=== PATIENT | female | born 1990 | race Caucasian/White ===

== ENCOUNTER 2016-08-20 04:02 | Emergency (ER) | payer OTHER ==
[~2016-08-20] VITALS: Ht 157.5 cm; Wt 76.2 kg
[~2016-08-20 04:02] MED LIST: CLEOCIN HCL300 MG PO
--- NOTE | 2016-08-20 04:20 | ED THROAT/DENTAL COMPLAINT ---
History of Present Illness General Chief Complaint: Sore Throat, Dental Pain Stated Complaint: "I CANT EAT OR DRINK, MY THROAT IS ON FIRE" Source: patient Exam Limitations: no limitations Vital Signs & Intake/Output Vital Signs & Intake/Output Vital Signs Date Time Temp Pulse Resp B/P Pulse O2 O2 Flow FiO2 Ox Delivery Rate 08/20 412 98 Room Air 08/20 409 98.7 98 18 118/62 99 Room Air Allergies Coded Allergies: strawberry (Severe, ANAPHYLAXIS 08/20/16) cefaclor (From Ceclor) (UNKNOWN 08/20/16) Reconcile Medications Amoxicillin 500 MG TABLET 1 TAB PO TID PHARYNGITIS CLINDAMYCIN HCL (Cleocin HCl) 300 MG CAP 1 CAP PO 4X/DAY DENTAL ABSCESS Triage Note: PT FROM HOME C/O SORE THROAT. PT STATES "I WOKE UP YESTERDAY WITH MY THROAT ON FIRE I CANT EAT OR DRINK ANYTHING, MY EARS HURT SO BAD THEY FEEL LIKE THEY ARE FULL, MY WHOLE HEAD FEELS CONGESTED" Triage Nurses Notes Reviewed? yes : No Patient currently breastfeeds: No HPI: Since yesterday patient complaining of a sore throat that radiates to both of ears. The pain is constant. Pain is scratchy and sharp in nature. Pain is exacerbated with swallowing. Patient states that she is able to swallow it just hurts a lot do so. There is no difficulty breathing. The pain is 8 out of 10. There are no fevers or positive chills. There is no abdominal pain. There is no headache. Past History Travel History Traveled to [place] past 21 day No Medical History Any Pertinent Medical History? 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 No Review of Systems Review of Systems Constitutional: Reports: see HPI, chills. EENTM: Reports: see HPI, ear pain, throat pain. Respiratory: Reports: no symptoms. Cardiovascular: Reports: no symptoms. GI: Reports: no symptoms. Musculoskeletal: Reports: no symptoms. Skin: Reports: no symptoms. Neurological/Psychological: Reports: no symptoms. Hematologic/Endocrine: Reports: no symptoms. Immunologic/Allergic: Reports: no symptoms. Physical Exam Physical Exam General Appearance: well developed/nourished, alert, awake, moderate distress Head: atraumatic, normal appearance Eyes: Bilateral: PERRL, EOMI. Ears: Bilateral: canal normal, Tympanic normal. Nose: normal inspection Mouth/Throat: tonsillar exudate, tonsillar swelling Neck: lymphadenopathy (R), lymphadenopathy (L) Cardiovascular/Respiratory: normal breath sounds, normal peripheral pulses, regular rate/rhythm Neurologic/Psych: no motor/sensory deficits, awake, alert, oriented x 3, normal gait, normal mood/affect Core Measures ACS in differential dx? No Severe Sepsis Present: No Septic Shock Present: No Progress Differential Diagnosis: gillian-tonsillar abscess, strep pharyngitis Plan of Care: Orders Procedure Date/time Status THROAT CULTURE W/QUICK STREP 08/20 0407 Active Current Medications Sig/Melia Start time Last Medication Dose Stop Time Status Admin Amoxicillin 500 MG ONCE ONE 08/20 514 AC (Amoxil) 08/20 0416 Departure Departure Disposition: HOME OR SELF CARE Condition: Stable Clinical Impression Primary Impression: Pharyngitis Referrals: PAUL DIALLO,CHON Adam (PCP/Family) Additional Instructions: Drink plenty of fluids. Take Motrin as needed for pain. Return if symptoms worsen or for any concerns. Departure Forms: Customer Survey General Discharge Information Prescriptions: Current Visit Scripts Amoxicillin 1 TAB PO TID #30 TAB
[2016-08-20] MEDS ORDERED: AMOXICILLIN500 M3 PO (04:23)
[2016-08-20 05:10] VITALS: BP 120/64
== END 2016-08-20 05:10 ==
LOC: ERH 04:02
DX: J02.9 Acute pharyngitis, unspecified (principal); Z72.0 Tobacco use

== ENCOUNTER 2016-08-26 04:39 | Emergency (ER) | payer OTHER ==
[~2016-08-26] VITALS: Ht 157.5 cm; Wt 76.2 kg
[~2016-08-26 04:39] MED LIST changes: +AMOXICILLIN500 M3 PO
[2016-08-26 04:48] VITALS: BP 102/66
[2016-08-26] MEDS ORDERED: CELEXA10 M1 (04:53)
[2016-08-26] MEDS ORDERED: NEXIUM20 M1 PO (04:54)
[2016-08-26] MEDS ORDERED: AUGMENTIN 875-1 EACH PO (04:57)
[2016-08-26] MEDS ORDERED: PERCOCET 5-3251 EACH PO (04:57)
--- NOTE | 2016-08-26 05:00 | ED THROAT/DENTAL COMPLAINT ---
History of Present Illness General Chief Complaint: Sore Throat, Dental Pain Stated Complaint: SORE THROAT, L EAR PAIN PER PT Source: patient, old records Exam Limitations: no limitations Vital Signs & Intake/Output Vital Signs & Intake/Output Vital Signs Date Time Temp Pulse Resp B/P Pulse O2 O2 Flow FiO2 Ox Delivery Rate 08/26 0448 97.5 98 18 102/66 98 Room Air Allergies Coded Allergies: strawberry (Severe, ANAPHYLAXIS 08/20/16) cefaclor (From Ceclor) (UNKNOWN 08/20/16) Reconcile Medications Amoxicillin 500 MG TABLET 1 TAB PO TID PHARYNGITIS Amoxicillin/Potassium Clav (Augmentin 875-125 Tablet) 875 MG-125 MG TABLET 1 TAB PO BID PHARYNGITIS Citalopram Hydrobromide (Celexa) 10 MG TABLET ANXIETY (Reported) CLINDAMYCIN HCL (Cleocin HCl) 300 MG CAP 1 CAP PO 4X/DAY DENTAL ABSCESS Esomeprazole Magnesium (Nexium) 20 MG CAPSULE.DR MEEK (Reported) Oxycodone HCl/Acetaminophen (Percocet 5-325 MG Tablet) 5 MG-325 MG TABLET 1-2 TAB PO Q6P PRN PAIN Triage Note: LT EAR PAIN RADIATING DOWN SIDE OF THROAT HURTS TO SWALLOW Triage Nurses Notes Reviewed? yes : No Patient currently breastfeeds: No HPI: Patient was seen last week for a sore throat and she was treated with Decadron and amoxicillin. Patient states that she felt better until last night when the pain came back. The pain is sharp and radiates towards her left ear. The pain is exacerbated with swallowing. Patient states that she is able to swallow it is just painful to do so. There is no difficulty breathing or speaking. There are no fevers or chills. There is no nausea or vomiting. There is no rash. There is no abdominal pain. Past History Travel History Traveled to [place] past 21 day No Medical History Any Pertinent Medical History? 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 No Review of Systems Review of Systems Constitutional: Reports: see HPI, chills. EENTM: Reports: see HPI, throat pain. Respiratory: Reports: no symptoms. Cardiovascular: Reports: no symptoms. Musculoskeletal: Reports: no symptoms. Neurological/Psychological: Reports: no symptoms. Physical Exam Physical Exam General Appearance: well developed/nourished, alert, awake, mild distress Head: atraumatic Eyes: Bilateral: PERRL, EOMI. Ears: Bilateral: canal normal, Tympanic normal. Mouth/Throat: tonsillar exudate, tonsillar swelling Neck: lymphadenopathy (R), lymphadenopathy (L) Cardiovascular/Respiratory: normal breath sounds, normal peripheral pulses, regular rate/rhythm, no respiratory distress Neurologic/Psych: no motor/sensory deficits, awake, alert, oriented x 3, normal gait, normal mood/affect Core Measures ACS in differential dx? No Severe Sepsis Present: No Septic Shock Present: No Progress Differential Diagnosis: strep pharyngitis, pharyngitis Plan of Care: Antibiotics Departure Departure Disposition: HOME OR SELF CARE Condition: Stable Clinical Impression Primary Impression: Pharyngitis Referrals: PAUL DIALLO,CHON Adam (PCP/Family) Additional Instructions: DRINK PLENTY OF FLUIDS RETURN IF SYMPTOMS WORSEN OR FOR ANY COCNERNS Departure Forms: Customer Survey General Discharge Information Prescriptions: Current Visit Scripts Amoxicillin/Potassium Clav (Augmentin 875-125 Tablet) 1 TAB PO BID #20 TAB Oxycodone HCl/Acetaminophen (Percocet 5-325 MG Tablet) 1-2 TAB PO Q6P PRN PAIN #20 TAB
== END 2016-08-26 05:04 ==
LOC: ERH 04:39
DX: J02.9 Acute pharyngitis, unspecified (principal); Z72.0 Tobacco use

== ENCOUNTER 2016-12-22 10:27 | Emergency (ER) | payer OTHER ==
[~2016-12-22] VITALS: Ht 157.5 cm; Wt 76.7 kg
[~2016-12-22 10:27] MED LIST changes: +AUGMENTIN 875-1 EACH PO; +CELEXA10 M1; +NEXIUM20 M1 PO; +PERCOCET 5-3251 EACH PO
[2016-12-22] MEDS ORDERED: CITALOPRAM HBR40 MG PO (11:02)
--- NOTE | 2016-12-22 11:40 | ED GENERAL ADULT ---
History of Present Illness General Chief Complaint: Abdominal Pain/Flank Pain Stated Complaint: ABD PAIN Source: patient Exam Limitations: no limitations Vital Signs & Intake/Output Vital Signs & Intake/Output Vital Signs Date Time Temp Pulse Resp B/P B/P Pulse O2 O2 Flow FiO2 Mean Ox Delivery Rate 12/22 1536 97.6 68 17 118/62 100 Room Air 12/22 1254 64 18 114/56 99 Room Air 12/22 1030 97.4 79 20 100/60 98 Room Air Allergies Coded Allergies: strawberry (Severe, ANAPHYLAXIS 08/20/16) cefaclor (From Ceclor) (UNKNOWN 08/20/16) Reconcile Medications Citalopram Hydrobromide (Citalopram HBr) 40 MG TABLET 1 TAB PO DAILY MENTAL HEALTH (Reported) Esomeprazole Magnesium (Nexium) 20 MG CAPSULE. 1 CAP PO DAILY GERD ( Reported) Triage Note: PT C/O RLQ PAIN THAT RADIATES INTO RIGHT SIDE OF BACK SINCE LAST NIGHT. STATES PAIN WAS ON AND OFF ALL WEEKEND BUT HAS BEEN CONSTANT SINCE LAST NIGHT. PT STATES +NAUSEA. STATES SHE HAD DIARRHEA YESTERDAY Triage Nurses Notes Reviewed? yes : No Patient currently breastfeeds: No HPI: 26-year-old female with a history of GERD and anxiety presenting with constant sharp right lower quadrant pain 2 days. Pain has gradually radiated to right flank, with no worsening or alleviating factors. Endorses intermittent nausea, no vomiting. Had one episode of mild diarrhea yesterday. Denies fevers, dysuria, hematuria, vaginal bleeding, vaginal discharge, vaginal odor. LMP 2 weeks ago. (AMANDA KOCH PA-C) Past History Travel History Traveled to [place] past 21 day No Medical History Any Pertinent Medical History? 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 No (ZEE FUENTES,AMANDA) Review of Systems Review of Systems Constitutional: Denies: chills, fever, malaise, weakness. Respiratory: Reports: no symptoms. Cardiovascular: Reports: no symptoms. GI: Reports: abdominal pain, diarrhea, nausea. Denies: constipation, vomiting. Genitourinary: Denies: discharge, dysuria, frequency, urgency. Musculoskeletal: Denies: joint pain, muscle pain. (AMANDA KOCH PA-C) Physical Exam Physical Exam General Appearance: well developed/nourished, no apparent distress, comfortable Head: atraumatic Respiratory: normal breath sounds, lungs clear Cardiovascular: regular rate/rhythm Gastrointestinal: normal bowel sounds, soft, tenderness, on exam abdomen is soft , nondistended, + tender to palpation in the right lower quadrant, no rebound or guarding, negative psoas and obturator sign, no CVA tenderness Back: muscle spasm (over right low back muscles) Core Measures ACS in differential dx? No CVA/TIA Diagnosis: No Severe Sepsis Present: No Septic Shock Present: No (AMANDA KOCH PA-C) Progress Differential Diagnoses I considered the following diagnoses in my evaluation of the patient: [ Appendicitis versus ovarian cyst versus ovarian torsion versus ectopic versus colitis versus constipation versus abdominal wall muscle strain versus UTI] Plan of Care: Orders Procedure Date/time Status CBC WITHOUT DIFFERENTIAL 12/22 1137 Complete BASIC METABOLIC PANEL 12/22 1137 Complete URINE 12/22 1116 Complete URINALYSIS 12/22 1116 Complete Laboratory Tests 12/22/16 1232: Anion Gap 10, Estimated GFR > 60, BUN/Creatinine Ratio 14.3, Glucose 80, Calcium 9.3, CBC w Diff NO MAN DIFF REQ, RBC 4.17 L, MCV 87.4, MCH 29.3, RDW 13.5, MPV 8.0, Gran % 48.0, Lymphocytes % 41.9, Monocytes % 7.7, Eosinophils % 1.8, Basophils % 0.6, Absolute Granulocytes 2.9, Absolute Lymphocytes 2.6, Absolute Monocytes 0.5, Absolute Eosinophils 0.1, Absolute Basophils 0, PUBS MCHC 33.6 12/22/16 1119: Urine Color YEL, Urine Clarity CLEAR, Urine pH 6.5, Ur Specific [place] 1.025, Urine Protein TRACE H, Urine Ketones NEG, Urine Nitrite NEG, Urine Bilirubin NEG, Urine Urobilinogen 0.2, Ur Leukocyte Esterase NEG, Ur Microscopic SEDIMENT EXAMINED, Urine RBC RARE, Ur Epithelial Cells MOD H, Urine Mucus FEW, Urine Hemoglobin NEG, Urine Glucose NEG, Urine Test NEGATIVE Labs within normal limits, UA unremarkable, urine negative. Ultrasound showed no evidence of ovarian torsion or ovarian cyst, but was unable to visualize the appendix. CT scan also unable to visualize the appendix, but per radiology read low suspicion as there signs of inflammation or other markers of acute appendicitis. Patient has been afebrile, normal WBC, vomiting, and pain has not worsened since onset. Therefore there is low suspicion for acute appendicitis. CT scan did show stool in the right colon, possibility of pain secondary to constipation. Given patient's abdominal pain radiates around to the right lower back where she has palpable muscle spasms there is also the possibility that pain is secondary to abdominal wall strain. Patient informed that we were unable to completely rule out appendicitis on this visit, but our suspicion was low. She was counseled and very strict return precautions. She will follow up with her primary care provider for reevaluation. (ZEE FUENTES,AMANDA) Initial ED EKG: none (ZEE FUENTES,AMANDA) Departure Departure Disposition: HOME OR SELF CARE Condition: Stable Clinical Impression Primary Impression: RLQ abdominal pain Referrals: PAUL DIALLO,CHON Adam (PCP/Family) Additional Instructions: You have been counseled that we have been unable to rule out appendicitis during today's visit. He'll understand that you should return to the ED immediately for any normal worsening symptoms including but not limited to worsening abdominal pain, nausea, vomiting, fevers. Follow-up with your primary care provider in 2-3 days for reevaluation. Departure Forms: Customer Survey General Discharge Information (AMANDA KOCH PA-C) PA/ENVIRONMENTAL INTERN Co-Sign Statement Statement: ED Attending supervision documentation- [] I saw and evaluated the patient. I have also reviewed all the pertinent lab results and diagnostic results. I agree with the findings and the plan of care as documented in the PA's/ENVIRONMENTAL INTERN's documentation. [X] I have reviewed the ED Record and agree with the PA's/ENVIRONMENTAL INTERN's documentation. [] Additions or exceptions (if any) to the PAs/ENVIRONMENTAL INTERN's note and plan are summarized below: [] (GABBIE DIALLO,PATRICIO) Critical Care Note Critical Care Note Critical Care Time: non-applicable (ZEE FUENTES,AMANDA)
[2016-12-22 12:44] LABS: ABSOLUTE BASOPHIL COUNT 0 /CUMM (0.0-0.2); ABSOLUTE EOSINOPHIL COUNT 0.1 /CUMM (0.0-0.7); ABSOLUTE GRANULOCYTE CT 2.9 /CUMM (1.4-6.5); ABSOLUTE LYMPH COUNT 2.6 /CUMM (1.2-3.4); ABSOLUTE MONOCYTE COUNT 0.5 /CUMM (0.10-0.60); BASOPHIL % 0.6 % (0.0-2.0); EOSINOPHIL % 1.8 % (0-5); HEMATOCRIT 36.4 % (37-47); MEAN CORPUSCULAR HGB 29.3 PG (27.0-31.0); MEAN CORPUSCULAR HGB CONC 33.6 G/DL (33.0-37.0); MEAN CORPUSCULAR VOLUME 87.4 FL (81.0-99.0); PLATELET COUNT 249 /CUMM (130-400); RBC DISTRIBUTION WIDTH 13.5 % (11.5-14.5); RED BLOOD CELL CT 4.17 /CUMM (4.20-5.40); WHITE BLOOD CELL COUNT 6.1 /CUMM (4.8-10.8)
--- NOTE | 2016-12-22 12:54 | ULTRASOUND REPORT ---
EXAMINATION: US ABDOMEN LIMITED CLINICAL INFORMATION: Right lower quadrant abdominal pain. COMPARISON: None TECHNIQUE: Real-time imaging of the right lower quadrant of the abdomen. FINDINGS: The appendix is not visualized at right lower quadrant of the abdomen. There is no free fluid or focal fluid collection identified at the right lower quadrant. IMPRESSION: Nonvisualized appendix. Possibility of appendicitis accordingly as you know, is not excluded. Alternative imaging modality including CT scan of the abdomen and pelvis with oral and intravenous contrast, may be considered for further full detail evaluation, if clinically appropriate.
--- NOTE | 2016-12-22 13:28 | ULTRASOUND REPORT ---
EXAMINATION: ULTRASOUND OF THE PELVIS CLINICAL INFORMATION: 26-year-old female with right lower quadrant abdominal pain. Suspected ovarian torsion.. COMPARISON: Pelvic ultrasound done on 07/29/2013.. TECHNIQUE: Transabdominal and transvaginal pelvic ultrasound. FINDINGS: The uterus is normal in size and appearance, measuring 7.8 x 3.7 x 4.6 cm longitudinally, anteroposteriorly and transversely, volume of 69.5 mL. The endometrial stripe is smooth, homogenous, echogenic, measures 1.6 cm. The cervical length measures 2.0 cm. No focal myometrial mass is seen. The ovaries bilaterally are visualized and appear normal, with the right ovary measuring 3.2 x 2.2 x 3.0 cm, volume 11.8 mL , previously measured 2.3 x 1.9 x 1.8 cm and the left ovary measuring 2.0 x 1.6 x 1.9 cm., volume of 4.5 mL, previously measures 2.4 x 1.3 x 1.5 cm. Arterial as well as venous flow to both ovaries is well maintained. No adnexal mass or free fluid collection seen. A transvaginal study was performed in addition to the transabdominal study which did not yield an adequate examination of the uterus and ovaries due to superimposed distended gas-filled loops of bowel. IMPRESSION: 1. No sonographic evidence of ovarian cyst, mass or any sonographic evidence of torsion identified. 2. The endometrial stripe appears smooth, homogenous and measures 1.6 cm, likely physiologic. Otherwise unremarkable sonographic appearance of the uterus.
--- NOTE | 2016-12-22 14:47 | CT SCAN REPORT ---
EXAMINATION: CT ABDOMEN AND PELVIS WITH CONTRAST CLINICAL INFORMATION: Right lower quadrant pain. COMPARISON: Pelvic ultrasound and limited ultrasound right lower quadrant 12/22/2016 TECHNIQUE: Multidetector volumetric imaging was performed of the abdomen and pelvis after the IV administration of 95 mL of Optiray 320 intravenous contrast. Sagittal and coronal reformatted images were obtained on the technologist's workstation. DLP: 387.57 mGy-cm FINDINGS: LUNG BASES: The visualized lung bases are unremarkable. LIVER, GALLBLADDER, AND BILIARY TREE: The liver is normal in size, shape, and attenuation. No focal hepatic lesion or biliary ductal dilatation is present. The gallbladder is unremarkable with no evidence of radiopaque gallstones, gallbladder wall thickening, or obvious pericholecystic inflammatory changes. PANCREAS: Unremarkable. SPLEEN: Unremarkable. ADRENAL GLANDS: Unremarkable. KIDNEYS AND URETERS: The kidneys are normal in size, shape, and attenuation. No hydronephrosis, hydroureter, or calculi seen. No perinephric stranding. BLADDER: Unremarkable. GASTROINTESTINAL TRACT: [id number] amount of stool is seen in the colon. No evidence of thickened bowel loops or bowel obstruction. The appendix is not confidently identified but there are no manifestations of appendicitis. ABDOMINAL WALL: Tiny fat-containing umbilical hernia is noted incidentally. LYMPH NODES: Small mesenteric lymph nodes are seen. VASCULAR: Unremarkable. PELVIC VISCERA: Unremarkable. OSSEOUS STRUCTURES: Unremarkable. IMPRESSION: 1. No acute abnormality identified to explain the patient's right lower quadrant pain. The appendix is not visualized but there are no manifestations of acute appendicitis. No inflammatory changes are seen. 2. A small volume of stool is seen in the right colon.
[2016-12-22 15:36] VITALS: BP 118/62
== END 2016-12-22 15:48 ==
LOC: ERH 10:27
PROVIDERS: Physician Assistant
DX: R10.31 Right lower quadrant pain (principal)
CPT/HCPCS: 74177; 81001; 81025; 96361; 96374; 96375; 96376; J1885